=== PATIENT | male | born 2000 | race Caucasian/White ===

== ENCOUNTER 2018-06-13 22:47 | Emergency (ER) | payer OTHER ==
[2018-06-13] MEDS ORDERED: IBUPROFEN 200 MG TAB PO ONE (23:20)
--- NOTE | 2018-06-13 23:28 | EDPHY ---
H & P Stated Complaint: SOB, pain in mid central back with deep inhalations Time Seen by Provider: 06/13/18 23:11 HPI/ROS: HPI The patient presents with midthoracic back pain which has been present for the last 1 week. Pain started slowly and has gotten progressively worse. He describes it as an aching sort of pain. About 1 hr ago, the pain became more severe, and he developed pain worse with breathing. He describes this pain is somewhat sharp in it does radiate toward his left ribcage. He does not have any shortness of breath at rest. His back pain is worsened when he bends forward. He has not had any trauma to the area. He has not had any fevers or coughs.. REVIEW OF SYSTEMS 10 systems were reviewed and negative with the exception of the elements mentioned in the history of present illness. PMHx: Healthy Soc Hx: [employer] FHx: Noncontributory PHYSICAL General Appearance: Alert, no distress Eyes: Pupils equal and round no pallor or injection ENT, Mouth: Mucous membranes moist Respiratory: There are no retractions, lungs are clear to auscultation Cardiovascular: Regular rate and rhythm Gastrointestinal: Abdomen is soft and non-tender, no masses, bowel sounds normal Neurological: A&O, moves all extremities Skin: Warm and dry, no rashes Musculoskeletal: Back in the midthoracic region is tender at the midline and also in the paraspinal region from about T5 through T10 Extremities: symmetrical, full range of motion Psychiatric: Patient is oriented X 3, there is no agitation Source: Patient Exam Limitations: No limitations - Personal History Current Tetanus/Diphtheria Vaccine: Yes Current Tetanus Diphtheria and Acellular Pertussis (TDAP): Yes - Medical/Surgical History Hx Asthma: No Hx Chronic Respiratory Disease: No Hx Diabetes: No Hx Cardiac Disease: No Hx Renal Disease: No Hx Cirrhosis: No Hx Alcoholism: No Hx HIV/AIDS: No Hx Splenectomy or Spleen Trauma: No Other PMH: denies - Social History Smoking Status: Never smoked Constitutional: Initial Vital Signs Temperature (C) 37.0 C 06/13/18 22:51 Heart Rate 91 06/13/18 22:51 Respiratory Rate 20 06/13/18 22:51 Blood Pressure 146/95 H 06/13/18 22:51 O2 Sat (%) 93 06/13/18 22:51 O2 Delivery Mode Room Air Allergies/Adverse Reactions: No Known Allergies Allergy (Unverified 06/13/18 22:51) Home Medications: Medication Instructions Recorded NK [No Known Home Meds] 06/13/18 Medical Decision Making - Diagnostics Imaging Results: Imaging Impressions Chest X-Ray 06/13/18 23:11 Impression: Excellent inspiration versus air trapping. Is there any wheezing? Thoracic Spine X-Ray 06/13/18 23:19 Impression: No source for pain identified. Differential Diagnosis: 17-year-old male with midthoracic back pain for 1 week which has now become pleuritic over the last 1 hr. On arrival here, vital signs are normal, patient is generally well-appearing. Lungs sound clear. He does have tenderness of his thoracic spine and paraspinals. Differential diagnosis includes muscle strain, costochondritis, pneumothorax, pneumonia, mass. In the emergency department, plain films of his thoracic spine as well as chest x-ray were obtained and both were unremarkable. Basic labs were also obtained and D-dimer and other testing was negative. Patient felt well enough to go home. I have instructed him to use ibuprofen as needed for the pain. I suspect muscle strain versus pleurisy. - Data Points Laboratory Results: Laboratory Results 06/14/18 00:20 06/14/18 00:20 06/14/18 06/14/18 06/14/18 00:20 00:20 00:20 WBC 9.84 10^3/uL H 10^3/uL (3.80-9.50) RBC 5.46 10^6/uL 10^6/uL (4.40-6.38) Hgb 15.7 g/dL g/dL (13.7-17.5) Hct 45.3 % % (40.0-51.0) MCV 83.0 fL fL (81.5-99.8) MCH 28.8 pg pg (27.9-34.1) MCHC 34.7 g/dL g/dL (32.4-36.7) RDW 11.9 % % (11.5-15.2) Plt Count 324 10^3/uL 10^3/uL (150-400) MPV 9.6 fL fL (8.7-11.7) Neut % (Auto) 60.9 % % (39.3-74.2) Lymph % (Auto) 30.2 % % (15.0-45.0) [place] % (Auto) 8.1 % % (4.5-13.0) Eos % (Auto) 0.0 % L % (0.6-7.6) Baso % (Auto) 0.7 % % (0.3-1.7) Nucleat RBC Rel Count 0.0 % % (0.0-0.2) Absolute Neuts (auto) 5.99 10^3/uL 10^3/uL (1.70-6.50) Absolute Lymphs (auto) 2.97 10^3/uL 10^3/uL (1.00-3.00) Absolute Monos (auto) 0.80 10^3/uL 10^3/uL (0.30-0.80) Absolute Eos (auto) 0.00 10^3/uL L 10^3/uL (0.03-0.40) Absolute Basos (auto) 0.07 10^3/uL 10^3/uL (0.02-0.10) Absolute Nucleated RBC 0.00 10^3/uL 10^3/uL (0-0.01) Immature Gran % 0.1 % % (0.0-1.1) Immature Gran # 0.01 10^3/uL 10^3/uL (0.00-0.10) D-Dimer < 0.27 ug/mLFEU ug/mLFEU (0.00-0.50) Sodium 141 mEq/L mEq/L (135-145) Potassium 4.1 mEq/L mEq/L (3.5-5.2) Chloride 105 mEq/L mEq/L (97-110) Carbon Dioxide 25 mEq/l mEq/l (22-31) Anion Gap 11 mEq/L mEq/L (6-14) BUN 14 mg/dL mg/dL (7-23) Creatinine 1.0 mg/dL mg/dL (0.7-1.3) Estimated GFR > 60 Glucose 111 mg/dL H mg/dL (70-100) Calcium 9.8 mg/dL mg/dL (8.5-10.4) Medications Given: Discontinued Medications Ibuprofen (Motrin) 400 mg PO EDNOW ONE Stop: 06/13/18 23:21 Last Admin: 06/13/18 23:44 Dose: 400 mg Departure - Departure Disposition: Home, Routine, Self-Care Clinical Impression: Thoracic back pain Qualifiers: Chronicity: acute Back pain laterality: midline Qualified Code(s): M54.6 - Pain in thoracic spine Condition: Good Instructions: Pleurisy (ED), Back Pain (ED) Additional Instructions: I recommend you take ibuprofen 400 mg every 6 hr as needed for pain. You also may benefit from a heating pad or an ice pack. If your symptoms continue for more than 2 days, I would like for you to follow up at [facility]. Referrals: [facility],. [Clinic] - As per Instructions
[2018-06-14 00:59] LABS: PLATELET COUNT 324 10^3/uL (150-400)
[2018-06-14 01:25] VITALS: BP 138/81
== END 2018-06-14 01:24 | disposition home or self-care (01) ==
DX: M54.6 Pain in thoracic spine (principal)